=== PATIENT | male | born 1990 | race Hispanic/Latino ===

== ENCOUNTER 2019-11-16 21:19 | Emergency (ER) | payer BC, OTHER, SELFPAY ==
[~2019-11-16 21:19] MED LIST: Iopamidol 370 76% 100 ML VIAL ONE
[2019-11-16] MEDS ORDERED: Ketorolac Tromethamine 30 MG/ML VIAL ONE (23:10)
[2019-11-16] MEDS ORDERED: Ondansetron PF 4 MG/2 ML Vial ONE (23:10)
[2019-11-16 23:47] LABS: #Basophils 0.1 thou/uL (0.0-0.2); #Eosinphils 0.3 thou/uL (0.0-0.7); #Lymphocytes 2.3 thou/uL (1.20-3.40); #Monocytes 0.6 thou/uL (0.11-0.59); #Neutrophils 2.2 thou/uL (1.40-6.50); %Basophils 1.4 % (0.0-1.0); %Eosinophils 4.8 % (0.0-10.0); %Lymphocytes 42.2 % (21.0-51.0); %Monocytes 11.4 % (0.0-10.0); %Neutrophils 40.3 % (42.0-75.0); Hemoglobin 16.4 g/dL (14.0-18.0); Mean Corpuscular HGB CONC 33.7 g/dL (32.0-36.0); Mean Corpuscular Hemoglobin 33.8 pg (27.0-31.0); Mean Platelet Volume 7.5 fL (7.4-10.4); Platelet Count 223 thou/uL (130-400); RBC Distribution Width 11.8 % (11.5-14.5); Red Blood Cell (RBC) Count 4.86 mill/uL (4.70-6.10); White Blood Cell (WBC) Count 5.4 thou/uL (4.8-10.8)
[2019-11-17 00:12] LABS: ALT (SGPT) 119 U/L (8-55); AST (SGOT) 62 U/L (5-34); Albumin 4.4 g/dL (3.5-5.0); Alkaline Phosphatase 95 U/L (40-110); Anion Gap 15 mmol/L (10-20); BUN (Urea Nitrogen) 15 mg/dL (8.9-20.6); Bilirubin, Total 0.3 mg/dL (0.2-1.2); Calc. Creatinine Clearance 0 mL/min (70-130); Calcium 9.4 mg/dL (7.8-10.44); Carbon Dioxide 21 mmol/L (22-29); Chloride 109 mmol/L (98-107); Estimated GFR-MDRD 81; Globulin 3.4 g/dL (2.4-3.5); Glucose 91 mg/dL (70-105); Potassium 4.5 mmol/L (3.5-5.1); Protein, Total 7.8 g/dL (6.0-8.3); Sodium 140 mmol/L (136-145)
[2019-11-17] MEDS ORDERED: Morphine 4 MG/ML VIAL ONE (00:23)
--- NOTE | 2019-11-17 07:32 | CT ---
PRELIMINARY REPORT/[facility]/EMERGENCY AFTER HOURS PROCEDURE: EXAM: CT Abdomen and CT Pelvis, with Contrast DATE/ TIME: 11/17/2019, 12:06 AM INDICATION: Body aches; diarrhea; right lower quadrant pain. Onset of symptoms began 4-5 days ago. Also experiencing cough; sneezing and chest pain TECHNIQUE: Helical CT was performed through the abdomen and pelvis during intravenous contrast admin istration. GI contrast was not utilized. Coronal and sagittal reconstructions were generated and re viewed. Exam was performed using one or more of the following dose reduction techniques: automated exposure control, adjustment of the mA and/or kV according to patient size, or use of iterative recon struction technique. COMPARISON: None. FINDINGS: The lung bases are clear. Gallbladder is contracted. Homogeneous enhancement is seen thr oughout the liver, spleen, pancreas, adrenal glands and kidneys. The abdominal aorta tapers normally . Small bowel loops are normal in appearance. The appendix is seen and is normal. Gas and stool ar e present throughout the colon without obstruction. Prostate and seminal vesicles are normal in appe arance. There is no ascites. Lower lumbar facet arthropathy is seen with discogenic degenerative ch anges including posterior disc-osteophyte complex formation. A moderate amount of intra-abdominal an d extra-abdominal adipose tissue is seen.. IMPRESSION: CT imaging of the abdomen and pelvis shows no anatomic finding to explain the patient's pain. ELECTRONICALLY SIGNED BY: Noble Valente DO Nov 17, 2019 12:32:32 AM CDT This report is intended for review by the ordering physician only, in accordance of law. If you recei ve this report in error, please call [facility] at [phone]. FINAL REPORT ABDOMEN CT WITH CONTRAST PELVIC CT WITH CONTRAST: HISTORY: Abdominal pain. COMPARISON: None. FINDINGS: ABDOMEN CT: Clear lung bases. Appropriate enhancement of solid organs. No evidence of obstructive uropathy. No mesenteric mass, lymphadenopathy, free air, or free fluid. Limited evaluation of alimentary canal by absence of oral contrast. No evidence of bowel obstruction. Normal caliber appendix. PELVIC CT: No acute abnormality. Unremarkable urinary bladder. No lytic or blastic lesions in the osseous structures. IMPRESSION: This report is in agreement with the initial report by [facility]. No acute abnormality in the abdomen or pelvis. POS: PPP
== END 2019-11-17 01:37 | disposition home or self-care (01) ==
LOC: ERS 21:19
DX: R10.11 Right upper quadrant pain (principal); J30.9 Allergic rhinitis, unspecified; R19.7 Diarrhea, unspecified; F41.9 Anxiety disorder, unspecified; F32.9 Major depressive disorder, single episode, unspecified; F17.210 Nicotine dependence, cigarettes, uncomplicated
CPT/HCPCS: 74177; 80053; 83605; 85025; 87804; 96361; 96374; 96375; J1885; J2270; J2405; Q9967

== ENCOUNTER 2020-04-30 06:57 | Emergency (ER) | payer BC, SELFPAY ==
[2020-04-30] MEDS ORDERED: Dexamethasone 10 MG/ML VIAL ONE ×2 (07:37→07:38)
[2020-04-30] MEDS ORDERED: Ketorolac Tromethamine 30 MG/ML VIAL ONE (07:37)
== END 2020-04-30 08:00 | disposition home or self-care (01) ==
LOC: ERS 06:57
DX: G89.29 Other chronic pain (principal); M54.5 Low back pain; F41.9 Anxiety disorder, unspecified; F32.9 Major depressive disorder, single episode, unspecified; F17.210 Nicotine dependence, cigarettes, uncomplicated
CPT/HCPCS: 96372; 99283; J1100; J1885

== ENCOUNTER 2020-05-15 18:29 | Emergency (ER) | payer BC, OTHER ==
[2020-05-16 12:09] LABS: SARS-CoV-2 MS2 Positive; SARS-CoV-2 N Gene Negative; SARS-CoV-2 S Gene Negative; SARS-CoV-2 by NAA Not Detected (NotDetected); SARS-CoV-2 orf1ab Negative
== END 2020-05-15 18:50 | disposition home or self-care (01) ==
LOC: ERS 18:29
DX: Z20.828 Contact with and (suspected) exposure to other viral communicable diseases (principal); F41.9 Anxiety disorder, unspecified; F32.9 Major depressive disorder, single episode, unspecified; F17.210 Nicotine dependence, cigarettes, uncomplicated; Z79.899 Other long term (current) drug therapy
CPT/HCPCS: 87635; 99283; U0003

== ENCOUNTER 2020-06-11 09:12 | Outpatient (CLI) | payer BC ==
--- NOTE | 2020-06-11 11:15 | ULT ---
Hepatic Doppler ultrasound: 06/11/2020 COMPARISON: None HISTORY: Hepatitis C TECHNIQUE: Multiplanar grayscale sonographic imaging of the upper abdomen obtained. The hepatic and s plenic vasculature is assessed with Doppler interrogation, including color flow and spectral analysis FINDINGS: Intrahepatic portal veins are patent and demonstrate appropriate flow direction. Hepatic ve ins are patent and demonstrate appropriate venous waveform. Main portal vein is patent with hepatopedal flow and there is a normal arterial waveform within the hepatic artery. The pancreas is o bscured by bowel gas. No focal liver lesion or intrahepatic biliary dilatation is seen. The gallbladder demonstrates no wall thickening or evidence for gallstones. The right kidney measures 11.9 cm in craniocaudal dimension and demonstrates no stone, hydronephrosis , or mass. The common bile duct measures 3 mm, within normal limits. Spleen measures up to 10.5 cm, within yamilex l limits. Stomach artery and vein are patent and demonstrate appropriate arterial and venous waveforms respecti vely. IMPRESSION: Unremarkable hepatic Doppler ultrasound.
== END 2020-06-11 09:13 | disposition home or self-care (01) ==
LOC: BICULT 09:12
PROVIDERS: ATTEND Internal Medicine Gastroenterology
DX: B18.2 Chronic viral hepatitis C (principal); R11.0 Nausea
CPT/HCPCS: 76705

== ENCOUNTER 2020-07-17 01:58 | Emergency (ER) | payer BC | END 2020-07-17 02:31 | disposition home or self-care (01) | LOC: ERS 01:58 | DX: R19.7 Diarrhea, unspecified (principal); R10.12 Left upper quadrant pain; F17.210 Nicotine dependence, cigarettes, uncomplicated | CPT/HCPCS: 99281 ==

== ENCOUNTER 2020-09-02 11:43 | Emergency (ER) | payer SELFPAY ==
[2020-09-02] MEDS ORDERED: Morphine 4 MG/ML VIAL ONE (12:31)
[2020-09-02] MEDS ORDERED: Ketorolac Tromethamine 30 MG/ML VIAL ONE (12:33)
--- NOTE | 2020-09-02 13:24 | CT ---
CT LUMBAR SPINE WITHOUT CONTRAST: Date: 09/02/2020 INDICATION: Back pain. Recent fall. History of disc disease. Comparison made to MRI lumbar spine dated 05/06/2020. FINDINGS: Lumbar vertebra maintain height and alignment. Degenerative disc changes are seen at all levels. Disc spaces are relatively well preserved. There are anterior osteophytes in the lumbar vertebra. L1-2: No significant disc bulge or protrusion. L2-3: There is a broad based bulge with central protrusion with associated osteophytes which luis e s the thecal sac. Posterior hypertrophic change. Moderate to severe central canal stenosis, not signi ficantly changed from the prior MRI exam. L3-4: Central disc protrusion with posterior osteophyte compressing the thecal sac resulting in maliha re central canal stenosis. Not significantly changed from the prior MRI. Left foraminal encroachment and stenosis due to asymmetric disc to the left. L4-5: Disc bulge with central disc protrusion compressing thecal sac resulting in moderate to severe central canal stenosis, not significantly changed. Mild bilateral foraminal stenosis. L5-S1: Disc protrusion centrally and to the right, unchanged from the prior MRI. This compresses the thecal sac and displaces the traversing right S1 nerve root. It also contacts the traversing left S1 nerve root. Moderate central canal stenosis. IMPRESSION: Multilevel disc protrusions with central canal stenosis as described above. Not significantly changed when compared to MRI of 05/06/2020. POS: AGW
== END 2020-09-02 13:34 | disposition home or self-care (01) ==
LOC: ERS 11:43
DX: M51.36 Other intervertebral disc degeneration, lumbar region (principal); M54.5 Low back pain; Z79.899 Other long term (current) drug therapy; Z79.891 Long term (current) use of opiate analgesic; F17.290 Nicotine dependence, other tobacco product, uncomplicated
CPT/HCPCS: 72131; 96374; 96375; J1885; J2270

== ENCOUNTER 2022-11-25 06:12 | Observation (INO) | payer BC ==
[2022-11-23 14:48] VITALS: BMI 32.3
[2022-11-25] MEDS ORDERED: fentaNYL PF 100 MCG/2 ML SYRINGE ONE ×3 (06:58→12:34)
[2022-11-25] MEDS ORDERED: Bupivacaine HCl 0.5%/Epinephrine 1:200,000/PF 30 ml Vial ONE (07:04)
[2022-11-25] MEDS ORDERED: Thrombin 5000 UNITS/5 ML VIAL ONE ×2 (07:04→11:33)
[2022-11-25] MEDS ORDERED: Levofloxacin 500 mg/D5W 100 ml Premix Bag ONE (07:06)
[2022-11-25] MEDS ORDERED: Clindamycin/D5W 900 mg/50 ml Premix Bag ONE (07:12)
[2022-11-25] MEDS ORDERED: Midazolam HCl 2 mg/2 ml Vial ONE ×2 (07:17→07:59)
[2022-11-25] MEDS ORDERED: HYDROmorphone 2 MG/ML VIAL ONE (07:32)
[2022-11-25] MEDS ORDERED: Ketorolac Tromethamine 30 MG/ML VIAL ONE (08:00)
[2022-11-25] MEDS ORDERED: PROPOFOL 200 MG/20 ML VIAL ONE (08:00)
[2022-11-25] MEDS ORDERED: Rocuronium Bromide 10 MG/ML (10ML VIAL) ONE (08:00)
[2022-11-25] MEDS ORDERED: Lidocaine 1% PF 5 ML VIAL ONE (08:00)
[2022-11-25] MEDS ORDERED: Ondansetron PF 4 MG/2 ML Vial ONE (08:00)
[2022-11-25] MEDS ORDERED: NEOSTIGMINE 3 MG/3 ML SYR 3 MG/3 ML SYRINGE ONE (08:00)
[2022-11-25] MEDS ORDERED: GLYCOPYRROLATE/PF 0.2 MG/ML VIAL ONE (08:00)
[2022-11-25] MEDS ORDERED: Rocuronium Bromide 50 MG/5 ML VIAL ONE (10:43)
[2022-11-25] MEDS ORDERED: Ondansetron HCl/PF 4 MG/2 ML Vial IVP PRN (13:09)
[2022-11-25] MEDS ORDERED: HYDROmorphone 2 MG/ML VIAL SLOW IVP PRN (13:09)
[2022-11-25] MEDS ORDERED: Promethazine HCl 25 MG/ML VIAL IM PRN (13:09)
[2022-11-25] MEDS ORDERED: HYDROmorphone 0.5 MG/0.5 ML SYRINGE ONE (13:32)
[2022-11-25] MEDS ORDERED: Fentanyl 250 MCG/5 ML VIAL ONE (13:32)
[2022-11-25] MEDS ORDERED: Ondansetron PF 4 MG/2 ML Vial IM PRN (13:37)
[2022-11-25] MEDS ORDERED: Bisacodyl 10 MG SUPP PR PRN (13:45)
[2022-11-25] MEDS ORDERED: Morphine 4 MG/ML VIAL SLOW IVP PRN (13:45)
[2022-11-25] MEDS ORDERED: diphenhydrAMINE 25 MG CAP PO PRN (13:45)
[2022-11-25] MEDS ORDERED: Acetaminophen 325 MG TAB PO PRN (13:45)
[2022-11-25] MEDS ORDERED: diphenhydrAMINE 50 MG/ML VIAL IVP PRN (13:45)
[2022-11-25] MEDS ORDERED: HYDROcodone/Acetaminophen 10/325 mg Tablet PO PRN (13:45)
[2022-11-25] MEDS ORDERED: Mag-Al 1200 mg/1200 mg/30 ML UDCUP PO PRN (13:45)
[2022-11-25] MEDS ORDERED: Cyclobenzaprine 10 MG TAB PO PRN (13:45)
[2022-11-25] MEDS ORDERED: Acetaminophen 650 MG Suppository PR PRN (13:45)
[2022-11-25] MEDS ORDERED: Tamsulosin HCl 0.4 MG CAP ONE (14:33)
[2022-11-25] MEDS: HYDROcodone/Acetaminophen 10/325 mg Tablet PO PRN ×2 (16:23→21:05)
[2022-11-25] MEDS: Sodium Chloride 0.9% 1,000 ML IV SCH (16:23)
[2022-11-25] MEDS: Clindamycin/D5W 300 MG in Premix Bag 1 BAG IVPB SCH ×2 (17:21→23:31)
[2022-11-25] MEDS: Morphine 2 MG/ML VIAL SLOW IVP PRN ×2 (18:10→23:15)
[2022-11-25] MEDS ORDERED: Ondansetron PF 4 MG/2 ML Vial IVP PRN (19:28)
[2022-11-26] MEDS: HYDROcodone/Acetaminophen 10/325 mg Tablet PO PRN ×4 (03:25→15:28)
[2022-11-26] MEDS: Sodium Chloride 0.9% 1,000 ML IV SCH (03:26)
[2022-11-26] MEDS ORDERED: Tamsulosin HCl 0.4 MG CAP PO SCH (06:00)
[2022-11-26] MEDS: Clindamycin/D5W 300 MG in Premix Bag 1 BAG IVPB SCH (08:06)
[2022-11-26] MEDS ORDERED: FLUoxetine HCl 20 MG CAP PO SCH (09:00)
[2022-11-26 12:10] VITALS: BP 117/65; TEMP 98.1
== END 2022-11-26 15:50 | disposition home or self-care (01) ==
LOC: SDC 06:12 → SURG B 13:44
PROVIDERS: ADMIT Neurological Surgery; ATTEND Neurological Surgery
PROC: 01NB0ZZ Release Lumbar Nerve, Open Approach (ICD-10-PCS; principal; 2022-11-25)
PROC: 0SG00AJ Fusion of Lumbar Vertebral Joint with Interbody Fusion Device, Posterior Approach, Anterior Column, Open Approach (ICD-10-PCS; 2022-11-25)
PROC: 0SG30AJ Fusion of Lumbosacral Joint with Interbody Fusion Device, Posterior Approach, Anterior Column, Open Approach (ICD-10-PCS; 2022-11-25)
DX: M51.16 Intervertebral disc disorders with radiculopathy, lumbar region (principal); M51.17 Intervertebral disc disorders with radiculopathy, lumbosacral region; M48.062 Spinal stenosis, lumbar region with neurogenic claudication; M48.07 Spinal stenosis, lumbosacral region; G89.4 Chronic pain syndrome; F17.210 Nicotine dependence, cigarettes, uncomplicated; Z79.899 Other long term (current) drug therapy; Z88.0 Allergy status to penicillin; Z98.890 Other specified postprocedural states
CPT/HCPCS: 96365; 96375; 96376; C1713; C1768; C1776; C1889; G0378; J1170; J1885; J1956; J2250; J2272; J2405; J2704; J3010; J3490; J7050